=== PATIENT | male | born 1975 | race Caucasian/White ===

== ENCOUNTER 2024-10-15 16:38 | Emergency (ER) | payer BC, SELFPAY ==
[2024-10-15 16:46] VITALS: BP 151/87; PULSE 74; RESP 17; TEMP 37.1; O2SAT 97
--- NOTE | 2024-10-15 18:06 | ED.SKABFB ---
HPI - Skin/Abscess/Foreign Bdy General Chief complaint: Skin/Abscess/Foreign Body Stated complaint: shingles Time Seen by Provider: 10/15/24 16:55 Source: patient and RN notes reviewed Mode of arrival: ambulatory Limitations: no limitations History of Present Illness HPI narrative: 49-year-old male presents Express Care complaining of possible shingles to his face. Patient stated on Monday developed nerve pain to the left side of his forehead into his left cheek. He said yesterday he developed a vesicular rash over the left side of his forehead and partially into his left side of the scalp. Patient reports that is painful and he was told that he had a history of internal shingles in his chest previously. Patient has also had chickenpox as a child. Patient's shingles vaccine is not up-to-date. Patient denies any rash on his nose, eyelids, eyes, ears, blurry vision, otalgia, hearing changes, or vision changes. Patient denies any fevers, chills, body aches, numbness or tingling. 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 Patient has not taken anything [id number] for management. Patient denies any significant past medical history. Related Data Allergies Allergy/AdvReac Type Severity Reaction Status Date / Time No Known Allergies Allergy Verified 10/15/24 16:48 Review of Systems Review of Systems: CONSTITUTIONAL: Denies fever, chills, or sweats. EYES: Denies visual changes, blurry vision, redness, or discharge. ENT: Denies rhinorrhea, congestion, sore throat, or otalgia. CARDIOVASCULAR: Denies chest pain, palpitations, or edema. RESPIRATORY: Denies cough or dyspnea. GASTROINTESTINAL: Denies abdominal pain, nausea, vomiting, or diarrhea. GENITOURINARY: Denies dysuria or hematuria. SKIN: Positive for painful rash on face. Negative for itching. MUSCULOSKELETAL: Denies back pain, joint pain, or myalgia. NEUROLOGIC: Denies headache, numbness, tingling, or weakness. PSYCHIATRIC: Denies anxiety or depression. All other systems reviewed are negative, except as documented in HPI. PMFSH Comments At the time of my signature, I reviewed and agree with the nursing past medical, surgical, social, and family history. There is no relevant family history pertinent to the patient complaint. Exam Narrative: GENERAL: This is a well-nourished, well-developed adult, in no apparent distress. They are non ill-appearing, nontoxic appearing. HEAD: normocephalic, atraumatic. EYES: Sclera clear/white. Conjunctiva normal bilaterally. Vision is grossly intact. Extraocular movements intact. Left eye Wood's lamp exam: Further examination with fluorescent dye is unremarkable, no evidence of herpes keratitis, corneal abrasion, eyelid eversion reveals no retained foreign body. The cornea smooth and transparent. Pupils PERRLA EARS: External ears normal without rash, auditory canals clear and without drainage, TMs normal without perforation. Hearing grossly intact. NOSE: External nose normal without rash, with no obvious nasal discharge, nares without redness, no rhinorrhea. THROAT: Mucous membranes moist, posterior pharynx clear. NECK: Normal range of motion, neck is supple, no tenderness or lymphadenopathy. CARDIOVASCULAR: Regular rate and rhythm RESPIRATORY: Respiratory rate normal, respiratory effort nonlabored, no respiratory distress SKIN: Face: There is a vesicular maculopapular erythematous rash to the patient's left forehead and goes into the beginning of his hairline. The rash does not cross the midline of his forehead. There is no rash on the nose, eyelids, or around the eye. The rash is tender to palpation. There is no discharge. No area of fluctuance or induration. NEURO: awake, alert, and oriented to person, place and time. There were no obvious focal neurologic abnormalities. No facial droop, tongue midline. EXTREMITIES: No joint tenderness, effusion, or edema noted. Course Course Emergency Course: Patient is aware of diagnosis, understands and agrees to treatment plan. Anticipatory guidance given. Patient agrees to follow-up as directed and is aware of reasons to seek care at the emergency department. Portions of this record may have been created with voice recognition software Level of Care: Express Care Visit Vital Signs Vital signs: Vital Signs Temperature 98.8 F 10/15/24 16:46 Pulse Rate 74 10/15/24 16:46 Respiratory Rate 17 10/15/24 16:46 Blood Pressure 151/87 H 10/15/24 16:46 Pulse Oximetry 97 10/15/24 16:46 Oxygen Delivery Room Air 10/15/24 16:46 Temperature 98.8 F 10/15/24 16:46 Pulse Rate 74 10/15/24 16:46 Respiratory Rate 17 10/15/24 16:46 Blood Pressure 151/87 H 10/15/24 16:46 Pulse Oximetry 97 10/15/24 16:46 Oxygen Delivery Room Air 10/15/24 16:46 Reviewed MDM - Skin/Abscess/Foreign Bdy MDM Narrative Medical decision making narrative: Rashes consistent with herpes zoster. Will start patient on acyclovir given the location of his rash. There is no evidence of eye or ear involvement, no rash around the eyelid, eye, ear, or nose. Patient has chronic tinnitus and reports his hearing remains unchanged. Patient is having no visual changes or blurry vision, Wood's lamp exam was unremarkable to the left eye. Discussed physical exam findings. Advised supportive measures and signs/symptoms to go to the ER. Pt is appropriate for outpt treatment and f/u. Differential Diagnosis Differential diagnosis: Likely other (Herpes zoster, contact dermatitis, cellulitis) Critical Care Time Critical Care Time Critical Care Time: No Discharge Plan Discharge Clinical Impression: Herpes zoster Qualifiers: Herpes zoster complications: without complications Qualified Code(s): B02.9 - Zoster without complications Patient Disposition: Home Condition: Stable Instructions: Antibiotic Form, Shingles (ED) Additional Instructions: Take acyclovir as directed. Is likely that you have shingles. Please follow-up with your primary care provider in 3 days. If you develop any vision changes, or the rash begins on your eyelid, nose, or hearing changes or any other concerns please go the ER immediately. Patient Language: Ethiopian Prescriptions: New acyclovir 800 mg tablet See Rx Instructions .ROUTE .COMPLEX 7 Days Qty: 35 0RF Rx Instructions: 800 mg orally 5 times a day for 7 days. Follow-up/Referrals: PHYSICIAN,AIRCRAFT LOADMASTER SUPERINTENDENT [Primary Care Provider] - Time of Disposition: 17:41
--- OUTSIDE RECORDS SUMMARY | 2024-10-15 18:16 | XMS_ITS | Clinical Summary ---
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 30 Capsule 11 05/13/2020 Active meloxicam (MOBIC) 15 mg tablet TAKE 1 TABLET(15 MG) BY MOUTH DAILY 30 Tablet 3 07/07/2020 Active Active Problems Problem Noted Date Diagnosed Date Right sided abdominal pain 12/04/2019 Fatigue 12/04/2019 Nonintractable headache 12/04/2019 Sinusitis 12/04/2019 Immunizations Immunization Administration Dates Next Due INFLUENZA VACCINE QUADRIVALENT 6 MOS UP PF IM Family History Medical History Relation Name Comments Lung Cancer Father metastatic Diabetes Mother Hypertension Mother Other Sister MS, migraines Breast Cancer Neg Hx Celiac Disease Neg Hx Colon Cancer Neg Hx Colon Polyps Neg Hx Crohn's Disease Neg Hx Hemochromatosis Neg Hx Liver Cancer Neg Hx Liver Disease Neg Hx Ovarian Cancer Neg Hx Pancreatic Cancer Neg Hx Ulcerative Colitis Neg Hx Uterine Cancer Neg Hx Relation Name Status Comments Father Mother Sister Social History Tobacco Use Types Packs/Day Years Used Date Smoking Tobacco: Never Smokeless Tobacco: Never Tobacco Cessation:Counseling Given: No Alcohol Use Standard Drinks/Week Comments Yes 0 (1 standard drink = 0.6 oz pur e alcohol) Feeling Safe Answer Date Recorded Within the last year, have y ou been afraid of your partner or ex-partner? No 12/04/2019 Within the last year, have y ou been humiliated or emotionally abused in other ways by your partner or ex-partner? No Within the last year, have y ou been kicked, hit, slapped, or otherwise physically hurt by your partner or ex-partner? No 12/04/2019 Within the last year, have y ou been raped or forced to have any kind of sexual activity by your partner or ex-partner? 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 Not on file Not on fi le Last Filed Vital Signs Vital Sign Reading Time Taken Comments Blood Pressure 174/101 07/13/2020 1:27 PM [employer] MIX[employer] OPERATOR Pulse 73 07/13/2020 1:27 PM [employer] MIX[employer] OPERATOR Temperature 36.9 C (98.4 F) 07/13/2020 1:27 PM [employer] MIX[employer] OPERATOR Respiratory Rate 14 05/11/2020 12:44 PM [employer] MIXER OPERATOR Oxygen Saturation 96% 05/11/2020 12:44 PM [employer] MIXER OPERATOR Inhaled Oxygen Concentration - - Weight 96.6 kg (213 lb) 07/13/2020 1:27 PM [employer] MIXER OPERATOR Height 180.3 cm (5' 11 ) 07/13/2020 1:27 PM [employer] MIXER OPERATOR Body Mass Index 29.71 07/13/2020 1:27 PM [employer] MIX[employer] OPERATOR Plan of Treatment Health Maintenance Due Date Last Done Comments DTAP/TDAP/TD VACCINES (1 - Tdap) 1993 HEPATITIS B VACCINES (1 of 3 - 19+ 3-dose series) 1993 COLORECTAL SCREENING 2019 FIT-DNA Q 3 years 2019 Flex Sig/CT Colonography Q 5 years 2019 Colorectal Cancer Screening 03/19/2021 FIT/FOBT Q 1 year 03/19/2021 03/19/2020 INFLUENZA VACCINE (#1) 2024 03/10/2020, 2019 ZOSTER VACCINE (1 of 2) 2024 Preventative Visit- Commercial 06/26/2024 03/10/2020 Procedures Procedure Name Priority Date/Time Associated Diagnosis Comments OCCULT BLOOD IMMUNOASSAY, COLORECTAL SCREEN Routine 03/19/2020 8:45 PM CDT Encounter for routine adult health examination with abnormal findings from Last 3 Months or Most Recently Relevant to Health Maintenance Results * OCCULT BLOOD IMMUNOASSAY, COLORECTAL SCREEN (03/19/2020 8:45 PM CDT) OCCULT BLOOD, STOOL Negative Negative 03/31/2020 9:57 PM CDT [facility] Stool STOOL SPECIMEN / Unknown Collection / Unknown 03/19/2020 8:45 PM CDT 03/31/2020 8:46 PM CDT us Mary Rene MD BODY FLUIDS AND STOOLS Abi l Result [facility] [employer] [facility] CLIA# [id number] [address] [place] [id number] from Last 3 Months or Most Recently Relevant to Health Maintenance Insurance [employer] PREFERRED Advance Directives For more information, please contact: [phone] * Full Code (Latest Code Status on File) Date Activated Date Inactivated Comments 05/11/2020 12:00 PM 05/11/2020 3:07 PM Care Teams Pump House Operator Relationship Specialty [place] [address] [place] [id number] PCP - General Internal Medicine 12/04/19
== END 2024-10-15 17:49 | disposition home or self-care (01) ==
DX: B02.9 Zoster without complications (principal); Z86.16 Personal history of COVID-19
CPT/HCPCS: 99213; A9270; G0463